=== PATIENT | female | born 1935 | race Caucasian/White ===

== ENCOUNTER 2017-09-18 15:26 | Outpatient (CLI) | payer MEDICARE ==
--- NOTE | 2017-09-18 18:22 | CT ---
CT BRAIN WITHOUT CONTRAST: Comparison: None. History: Fall on Monday. Pain at the base of the skull extending down the neck to the shoulders. Technique: Multiple contiguous axial images were obtained in a CT of the brain without contrast. FINDINGS: The brain is normal in morphology and attenuation without focal lesions or confluent areas of infarct ion. There is no evidence of hydrocephalus, intracranial hemorrhage, or extraaxial fluid present. Calvarium and overlying soft tissues are unremarkable. The visualized paranasal sinuses and mastoid a ir cells are well aerated. IMPRESSION: No evidence of acute intracranial abnormality. POS: [facility]
--- NOTE | 2017-09-18 18:30 | CT ---
CT CERVICAL SPINE WITHOUT CONTRAST: Comparison: None. History: Fall with pain at the base of skull radiating down the neck to the shoulders. Technique: Multiple contiguous axial images were obtained in a CT of the cervical spine without contr ast. Sagittal and coronal reformats were performed. FINDINGS: The vertebral bodies demonstrate normal height and alignment with fracture or subluxation. Interverte bral discs are narrowed and moderate osteophytes are seen throughout the cervical spine. No preverteb ral soft tissue swelling is seen. Posterior facets are well aligned. Normal alignment of the skull base with the cervical spine is seen . 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 POS: [facility]
== END 2017-09-18 15:27 | disposition home or self-care (01) ==
LOC: CT 15:26
PROVIDERS: ATTEND Nurse Practitioner Family
DX: M54.2 Cervicalgia (principal); M47.812 Spondylosis without myelopathy or radiculopathy, cervical region; Z79.01 Long term (current) use of anticoagulants; W19.XXXD Unspecified fall, subsequent encounter
CPT/HCPCS: 70450; 72125

== ENCOUNTER 2018-03-22 19:15 | Emergency (ER) | payer MEDICARE ==
[2018-03-22 20:03] LABS: #Eosinphils 0.1 thou/uL (0.0-0.7); #Lymphocytes 1.8 thou/uL (1.20-3.40); #Monocytes 1.1 thou/uL (0.11-0.59); #Neutrophils 9.5 thou/uL (1.40-6.50); %Basophils 0.3 % (0.0-1.0); %Eosinophils 0.6 % (0.0-10.0); %Lymphocytes 14.2 % (21.0-51.0); %Neutrophils 75.8 % (42.0-75.0); Hemoglobin 11.2 g/dL (12.0-16.0); Mean Corpuscular HGB CONC 32.2 g/dL (32.0-36.0); Mean Corpuscular Hemoglobin 27.9 pg (27.0-31.0); Mean Corpuscular Volume 86.6 fl (81.0-99.0); Mean Platelet Volume 6.1 fL (7.4-10.4); Platelet Count 377 thou/uL (130-400); RBC Distribution Width 15.5 % (11.5-14.5); Red Blood Cell (RBC) Count 4.02 mill/uL (4.20-5.40); White Blood Cell (WBC) Count 12.6 thou/uL (4.8-10.8)
[2018-03-22 20:23] LABS: ALT (SGPT) 34 U/L (8-55); AST (SGOT) 32 U/L (5-34); Albumin 3.8 g/dL (3.4-4.8); Alkaline Phosphatase 73 U/L (40-150); Anion Gap 15 mmol/L (10-20); BUN (Urea Nitrogen) 12 mg/dL (9.8-20.1); Bilirubin, Total 0.4 mg/dL (0.2-1.2); Calc. Creatinine Clearance 0 mL/min (70-130); Calcium 10.1 mg/dL (7.8-10.44); Carbon Dioxide 26 mmol/L (23-31); Chloride 99 mmol/L (98-107); Estimated GFR-MDRD 63; Globulin 3.6 g/dL (2.4-3.5); Glucose 90 mg/dL (83-110); Potassium 4.6 mmol/L (3.5-5.1); Protein, Total 7.4 g/dL (6.0-8.3); Sodium 135 mmol/L (136-145)
--- NOTE | 2018-03-22 20:28 | RAD ---
TWO VIEW CHEST: 03/22/18 INDICATIONS: Cough. COMPARISON: Portable film 06/24/14. 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 Heart size is upper normal. There is mild vascular conges tion which is more prominent than on the prior study. Interstitial markings may represent mild edema. No alveolar process seen. No effusion. IMPRESSION: Evidence of mild congestion. POS: [facility]
[2018-03-22 21:24] LABS: CKMB 0.3 ng/mL (0-6.6); Troponin I Less than 0.010 ng/mL (< 0.028)
== END 2018-03-22 22:00 | disposition home or self-care (01) ==
LOC: EEVIPCON 19:15 → ERS 19:15
DX: R09.89 Other specified symptoms and signs involving the circulatory and respiratory systems (principal); R05 Cough; I10 Essential (primary) hypertension; Z79.82 Long term (current) use of aspirin; Z79.899 Other long term (current) drug therapy
CPT/HCPCS: 71046; 80053; 82553; 83880; 84484; 85025; 93005